=== PATIENT | male | born 1995 | race Caucasian/White ===

== ENCOUNTER 2016-12-25 08:05 | Emergency (ER) | payer SELFPAY ==
[2016-12-25] MEDS ORDERED: BUPIVACAINE HCL/PF 5 MG/ML 10ML VIAL IV ONE (08:09)
[2016-12-25] MEDS ORDERED: TETANUS IMMUNE GLOBULIN/PF 250 UNIT DISP.SYRIN IM PRN (08:35)
[2016-12-25] MEDS: BUPIVACAINE HCL/PF 5 MG/ML 10ML VIAL IJ ONE (08:35)
--- NOTE | 2016-12-25 08:38 | ED Physician Documentation ---
Hand Injury - HISTORIAN Historian: patient - HPI Stated Complaint: finger laceration Chief Complaint: Hand Injury Additional Information: cut tip of R 3rd digit off with mitre saw. Tissue missing. Onset: just prior to arrival Where: work Severity: moderate Context: laceration Location of Injury: R hand, R fingers Modifying Factors: none Further Comments: no - ROS CONST: no problems GI/: denies: problems urinating, nausea CVS/RESP: none EYES/ENT: none MS/SKIN/LYMPH: none - PAST HX Past History: none Allergies/Adverse Reactions: Allergies Allergy/AdvReac Type Severity Reaction Status Date / Time Sulfa (Sulfonamide Allergy Verified 12/25/16 08:21 Antibiotics) Home Medications: Ambulatory Orders Medication Instructions Recorded FLUoxetine HCL [Prozac] 12/25/16 - SOCIAL HX Smoking History: non-smoker Alcohol Use: none Drug Use: none - FAMILY HX Family History: none - VITAL SIGNS Vital Signs: Vital Signs Temp Pulse Resp BP Pulse Ox 98.1 F 107 H 16 150/79 99 12/25/16 08:05 12/25/16 08:05 12/25/16 08:05 12/25/16 08:05 12/25/16 08:05 - REVIEWED ASSESSMENTS Nursing Assessment Reviewed: Yes Vitals Reviewed: Yes Procedures Wound Location: upper extremity Wound Length: [id number] Wound's Depth, Shape: superficial Wound Explored: clean Betadine Prep?: No Anesthesia: Other (.5% marcaine, digital block) Volume of Anesthetic: 9ml Wound Debrided: devitalized skin removed Layer Closure?: No Progress - Results/Orders Results/Orders: 1x1cm crater dressed with neosporin, vaseline guaze and coban, instructing patient to do the same daily. ED Results Lab/Radiology - Orders Orders: ED Orders Category Date Time Status Bupivacaine HCl/Pf [Marcaine 0.5%] Med 12/25/16 08:10 Once 10 mg IJ NOW ONE Bupivacaine HCl/Pf [Marcaine 0.5%] Med 12/25/16 08:09 Discontinued 50 mg IV .STK-MED ONE Tetanus Immune Globulin/Pf [Hypertet S-D 250 Units Med 12/25/16 08:35 Ordered Syringe] 250 unit IM NOW PRN Hand Injury Physical Exam - Exam General Appearance: no acute distress Hand: other (1x1cm crater, to pulp, 3rd R digit tip, tissue absent, nothing to suture repair.) Wrist: normal inspection Neuro: motor nml Vascular: no vascular compromise Tendons: tendon function nml Forearm/Elbow/Arm: uninjured above wrist Skin: warm/dry Head/ENT: nml inspection Neck/Back: nml inspection Resp/CVS: no resp. distress Abdomen: non-tender Discharge Clincal Impression: Laceration of finger of right hand Qualifiers: Encounter type: initial encounter Qualified Code(s): S61.219A - Laceration without foreign body of unspecified finger without damage to nail, initial encounter Clincal Impression: (Ruled Out): Amputation finger Home Medications: Ambulatory Orders FLUoxetine HCL [Prozac] 12/25/16 Condition: Good Disposition: HOME, SELF-CARE Decision to Admit: NO Date of Decison to Admit: 12/25/16 Decision Time: 08:51
[2016-12-25] MEDS: DIPH,PERTUSS(ACELL),TET VAC/PF 0.5 ML DISP.SYRIN IM ONE (08:43)
[2016-12-25 09:05] VITALS: BP 146/80
== END 2016-12-25 09:03 | disposition home or self-care (01) ==
LOC: ED 08:08
DX: S61.219A Laceration without foreign body of unspecified finger without damage to nail, initial encounter (principal); W31.2XXA Contact with powered woodworking and forming machines, initial encounter; Y93.9 Activity, unspecified; Y99.9 Unspecified external cause status
CPT/HCPCS: 90715; J3490; 90471; 99283